=== PATIENT | male | born 1970 | race Caucasian/White ===

== ENCOUNTER 2023-08-21 08:18 | Emergency (ER) | payer BC ==
[2023-08-21] MEDS: methylPREDNISolone Sodium Succinate 125 MG/2 ML SDV IVPUSH ONE (10:23)
[2023-08-21] MEDS: Orphenadrine 60 MG/2 ML Inj IV ONE (10:23)
[2023-08-21] MEDS: Sodium Chloride 0.9% 10 ML Syringe FLUSH PRN (10:23)
== END 2023-08-21 11:40 | disposition home or self-care (01) ==
LOC: JD.ED 08:18
DX: S33.5XXA Sprain of ligaments of lumbar spine, initial encounter (principal); M54.42 Lumbago with sciatica, left side; Z79.899 Other long term (current) drug therapy; X50.0XXA Overexertion from strenuous movement or load, initial encounter; Y93.89 Activity, other specified
CPT/HCPCS: 72131; 96374; 96375; 99283; J2360; J2930; J3490